=== PATIENT | female | born 1995 | race Asian ===

== ENCOUNTER 2018-11-22 11:36 | Emergency (ER) | payer OTHER ==
[~2018-11-22] VITALS: Ht 162.6 cm; Wt 73.0 kg
[~2018-11-22 11:36] MED LIST: BECL8.7A5 IH
[2018-11-22 15:59] VITALS: BP 125/87
== END 2018-11-22 16:01 | disposition home or self-care (01) ==
LOC: EMS 11:37
DX: F41.9 Anxiety disorder, unspecified (principal); F32.9 Major depressive disorder, single episode, unspecified; J45.909 Unspecified asthma, uncomplicated